=== PATIENT | female | born 1980 | race Caucasian/White ===

== ENCOUNTER 2019-02-24 12:45 | Emergency (ER) | payer MEDICAID, OTHER ==
[2019-02-24 13:45] VITALS: BMI 34.9
[2019-02-24] MEDS ORDERED: Lactated Ringer's 1,000 ML IV SCH (14:00)
--- NOTE | 2019-02-24 14:52 | OBHP ---
Datetime: 02/24/2019 13:44 IP Adm Impression: , intrauterine IP Admit Plan: Observation/Evaluation Admit Comment, IP Provider: 38-year-old at 31.0 weeks EGA (dated on LMP) presents after a fa ll at 6 am (7 hours prior to presentation). She denies leaking of vaginal fluid, vaginal bleeding, an d contractions. Endorses good movement. Has had no PO intake today as of yet, as she was too ne rvous. She describes the fall as tripping and falling forward directly onto her abdomen, did not hit any furniture or sharp edges but was unable to catch herself on hard wood floor. Denies loss of consc iousness or trauma to head. Previous resulted in c/s in 2014 d/t post-term. Pt of Dr Tony zarate, last seen 02/04/19. PMD: Dr Roman PMH: denies Meds: denies Allergies: denies Fam Hx: denies Surg Hx: c/s (2014), lap dilia (2014) Labs: O+, antibody neg, RPR non-reactive, HIV neg, GC/CL neg ROS: all other systems reviewecd and negative unless noted in HPI. PE: Gen: anxious, worried, NAD Resp: no resp distress CV: RRR Skin: no rash Abd: mild tenderness to palpation mostly LUQ and suprapubic Extremities: no edema A+P: 38-year-old at 31.0 weeks EGA (dated on LMP) presents after a fall at 6 am (7 hours p rior to presentation). -Extended observation -EFM reassuring, FHR 130, Acceleration present 15 x 15, no decelerations -IVF: 1L LR bolus [facility] Addendum by Dr. Urena: I have evaluated the patient independently and I agree with the above Pelvic Type - PN: Not Done Extremities - PN: Normal Abdomen - PN: Normal Back - PN: Normal Breast - PN: Not Done Lungs - PN: Normal Heart - PN: Normal Thyroid - PN: Normal Neurologic - PN: Normal HEENT - PN: Normal General - PN: Normal EGA AdmitDate IP: 31.0 IP Chief Complaint: Trauma/Fall Genitourinary Exam: Not Done DTRs - PN: Normal
[2019-02-24 15:30] VITALS: TEMP 98.1
--- NOTE | 2019-02-24 16:40 | OBPN ---
Datetime: 02/24/2019 16:34 IP Progress Plan: Discharge FHR - Baseline A Provider: 130 IP Progress Note Comment: Patient re-evalauted, comfortable. Reports no new signs/symptoms of labor. FHR = 130 mod ana maria, +accels, no decels. [place] = no contractions on the monitor. Discused plan of care with patient - no signs of abruption or labor, will discharge patient home. Labor precautions discuss ed, patient has follow up appt in office. All questions answered Vital Signs Provider: Reviewed; Within Normal Limits NICHD Accel Fetus A IP Provider: [id number] NICHD Variability Prov Fetus A: Moderate 6-25bpm NICHD Decel Fetus A IP Provider: None
--- NOTE | 2019-02-24 20:56 | OBDCSUM ---
Datetime: 02/24/2019 16:59 Discharged to, Provider: Home Follow up at, Provider: Dr. Roman Disch Instr Activity: Normal activity Disch Instr Diet: Regular Discharge Time: 02/24/2019 17:00 Follow up in weeks, Provider: 03/04/19 Disch Referrals: None Discharge Diagnosis Prov Other: abominal trauma, 31 weeks gestation
[2019-02-24 21:44] VITALS: BP 114/52; PULSE 77; O2SAT 99
== END 2019-02-24 17:15 | disposition home or self-care (01) ==
LOC: H.EROB2 12:45
DX: O26.93 Pregnancy related conditions, unspecified, third trimester (principal); Z04.3 Encounter for examination and observation following other accident; Z3A.31 31 weeks gestation of pregnancy; W01.0XXA Fall on same level from slipping, tripping and stumbling without subsequent striking against object, initial encounter
CPT/HCPCS: 99283; J7120